=== PATIENT | female | born 1980 | race Two or more races ===

== ENCOUNTER 2025-03-09 19:43 | Emergency (ER) | payer BC ==
[~2025-03-09] VITALS: Ht 162.6 cm; Wt 90.9 kg
[2025-03-09 19:48] VITALS: TEMP 98.6
[2025-03-09 20:07] LABS: BASOPHILS # (AUTO) 0.1 X10'3 (0-0.2); BASOPHILS % (AUTO) 0.9 % (0-1); EOSINOPHILS # (AUTO) 0.1 X10'3 (0-0.9); EOSINOPHILS % (AUTO) 1.8 % (0-6); LYMPHOCYTES # (AUTO) 2.7 X10'3 (1.1-4.8); LYMPHOCYTES % (AUTO) 39.4 % (21-51); MEAN CORPUSCULAR HEMOGLOBIN 25.1 PG (27.0-31.0); MEAN CORPUSCULAR HGB CONC 32.2 g/dL (33.0-36.5); MEAN CORPUSCULAR VOLUME 77.8 FL (78-98); MEAN PLATELET VOLUME 8.9 FL (7.4-10.4); MONOCYTES # (AUTO) 0.6 X10'3 (0-0.9); MONOCYTES % (AUTO) 9.1 % (2-12); NEUTROPHILS # (AUTO) 3.4 X10'3 (1.8-7.7); NEUTROPHILS % (AUTO) 48.8 % (42-75); PLATELET COUNT 349 X10'3 (140-440); RED BLOOD COUNT 4.37 X10'6 (4.20-5.60); RED CELL DISTRIBUTION WIDTH 16.5 % (11.5-14.5); WHITE BLOOD COUNT 6.9 X10'3 (4.5-11.0)
[2025-03-09 20:23] LABS: ALANINE AMINOTRANSFERASE 18 U/L (12-78); ALBUMIN 3.6 G/DL (3.4-5.0); ALBUMIN/GLOBULIN RATIO 0.9 (1.1-1.5); ALKALINE PHOSPHATASE 103 IU/L (46-116); ANION GAP 6 (8-16); ASPARTATE AMINO TRANSFERASE 20 U/L (10-37); BILIRUBIN,TOTAL 0.4 MG/DL (0.1-1.0); BLOOD UREA NITROGEN 8 MG/DL (7-18); BUN/CREATININE RATIO 14.8 (10.0-20.0); CALCIUM 8.2 MG/DL (8.5-10.1); CHLORIDE 108 MMOL/L (99-107); CREATININE 0.54 MG/DL (0.40-0.90); GLUCOSE 134 MG/DL (70-104); LIPASE 107 U/L (16-77); POTASSIUM 3.6 MMOL/L (3.5-5.1); SODIUM 143 MMOL/L (135-145); TOTAL CARBON DIOXIDE 28.6 MMOL/L (24-32); TOTAL PROTEIN 7.5 G/DL (6.4-8.2); eCRCL 116 ML/MIN; eGFR > 90 ML/MIN
[2025-03-09 20:35] LABS: BILIRUBIN,URINE NEGATIVE (Neg); CLARITY,URINE CLEAR (Clear); COLOR,URINE YELLOW (Yellow); GLUCOSE, URINE NEGATIVE (Neg); KETONES,URINE NEGATIVE (Neg); LEUKOCYTE ESTERASE ,URINE NEGATIVE (Neg); NITRITES, URINE NEGATIVE (Neg); OCCULT BLOOD,URINE LARGE (Neg); PH,URINE 6.5 (4.8-8.0); PROTEIN,URINE NEGATIVE (Neg); UROBILINOGEN,URINE 0.2 E.U/dL (0.2-1.0)
[2025-03-09 20:37] LABS: URINE HCG NEGATIVE (NEG)
[2025-03-09 20:41] LABS: UA COLLECTION TYPE CLN CATCH MIDSTREAM
[2025-03-09 20:42] LABS: BACTERIA,URINE FEW /HPF (Neg); RBC,URINE 20-50 /HPF (0-2); SQUAMOUS EPITHELIAL CELL,UR FEW /LPF (FEW); WBC,URINE NONE SEEN /HPF (0-4)
--- NOTE | 2025-03-09 23:33 | Physician Documentation ---
History of Present Illness ~ Chief Complaint: Abdominal Pain Stated Complaint: BLOOD IN URINE/STOOL Time Seen by MD: 23:18 Mode of Arrival: POV HPI Patient presents to the emergency room with abdominal pain x3 days worsening. No prior instances. Patient also endorses some bright red blood mixed with her stools over the past few days. No history of hemorrhoids. No history of ulcers. She denies any black stool. No fevers. She is currently menstruating. Denies nausea or vomiting. She is on Mounjaro for the past year. She does have a primary care provider Medication Reconciliation Allergies: Coded Allergies: No Known Allergies (Unverified , 03/09/25) Review of Systems ROS All review of systems negative except as per HPI Physical Exam Vital Signs: Temperature: 98.6, Heart Rate: 70, Respiratory Rate: 17, BP: 96/71, Pulse Oximetry: 97, Weight: 90.910 Oxygen Flow Rate: 0 Physical Exam General: Patient is awake, alert, oriented x4 in no acute distress and well appearing.~ Head: Normocephalic and atraumatic. Eyes: Conjunctival normal. EOMI. PERRL. ENT: Mucous membranes moist. Neck: Supple, trachea is midline. Chest: Clear to auscultation bilaterally without rales, rhonchi, or wheezes. There is no accessory muscle use or retractions. Cardiac: RRR without murmurs, gallops, or rubs. Abd: Soft, nondistended, nontender, with normoactive bowel sounds. No guarding, rebound, or rigidity. Negative Boone's, negative McBurney's. No adnexal tenderness Progress Results/Orders Results/Orders Completed Orders - JUAN MIGUEL KNAPP MD Hcg, Ur Ql (03/09/25 19:54) Cbc/Diff (03/09/25 19:54) Lipase (03/09/25 19:54) CMP (03/09/25 19:54) Ua W/Microscopic, Cult If Ind (03/09/25 19:54) Vital Signs 03/09/25 03/09/25 03/09/25 03/09/25 19:48 21:23 21:25 22:36 Temp 98.6 Pulse 79 72 70 Resp 16 18 16 17 B/P (MAP) 153/90 148/73 (98) 96/71 (79) Pulse Ox 98 97 97 O2 Flow Rate 0 03/09/25 23:47 Pulse 62 Resp 18 B/P (MAP) 160/91 (114) Pulse Ox 98 Laboratory Tests Test 03/09/25 19:54 03/09/25 20:01 Urine Specimen Description Cln catch midstream Urine Color Yellow Urine Clarity Clear Urine pH 6.5 Urine Specific [place] 1.010 Urine Protein Negative Urine Glucose (UA) Negative Urine Ketones Negative Urine Occult Blood Large H Urine Nitrite Negative Urine Bilirubin Negative Urine Urobilinogen 0.2 Urine Leukocyte Esterase Negative Urine RBC 20-50 Urine WBC None seen Urine Squamous Epithelial Cells Few Urine Bacteria Few Urine Culture Indicated Not ind Volume Urine Centrifuged 10 ml Urine HCG, Qualitative Negative Urine Comment White Blood Count 6.9 Red Blood Count 4.37 Hemoglobin 11.0 L Hematocrit 34.0 L Mean Corpuscular Volume 77.8 L Mean Corpuscular Hemoglobin 25.1 L Mean Corpuscular Hemoglobin Concent 32.2 L Red Cell Distribution Width 16.5 H Platelet Count 349 Mean Platelet Volume 8.9 Neutrophils (%) (Auto) 48.8 Lymphocytes (%) (Auto) 39.4 Monocytes (%) (Auto) 9.1 Eosinophils (%) (Auto) 1.8 Basophils (%) (Auto) 0.9 Neutrophils # (Auto) 3.4 Lymphocytes # (Auto) 2.7 Monocytes # (Auto) 0.6 Eosinophils # (Auto) 0.1 Basophils # (Auto) 0.1 CBC Comment Sodium Level 143 Potassium Level 3.6 Chloride Level 108 H Carbon Dioxide Level 28.6 Anion Gap 6 L Blood Urea Nitrogen 8 Creatinine 0.54 Estimated GFR/1.73 m2 > 90 BUN/Creatinine Ratio 14.8 Glucose Level 134 H Calcium Level 8.2 L Total Bilirubin 0.4 Aspartate Amino Transf (AST/SGOT) 20 Alanine Aminotransferase (ALT/SGPT) 18 Alkaline Phosphatase 103 Total Protein 7.5 Albumin 3.6 Globulin 3.9 Albumin/Globulin Ratio 0.9 L Lipase 107 H Chemistry Comments Medical Decision Making Findings Patient presents to the emergency room with abdominal pain as per HPI. Differentials include but are not limited to gastritis cholecystitis appendicitis diverticulitis therefore emergent labs ordered. Labs reassuring for no elevation of white blood cell count. Patient does have mild anemia however she also has a decreased MCV. No tenderness elicited on abdominal exam. Mild elevation of patient's lipase. No elevation of patient's liver enzymes. After discussing the risks and benefits as well as alternatives of investigation into pancreatitis patient would prefer a more conservative approach. I do not feel patient is suffering from gallstone pancreatitis given no elevation of liver enzymes and no tenderness to palpation to the gallbladder area. She denies drinking any alcohol he had not feel she is suffering from alcoholic pancreatitis. She is on Mounjaro. She is declining IV fluids and would prefer to go home and drank fluids. She is declining pain medication. After discussing the risks and benefits of radiation exposure for CT scan patient is declining and we will treat pancreatitis conservatively. She has been instructed to stop her Mounjaro. She has also been instructed to call her doctor in the morning to arrange for follow up. ER precautions discussed Departure Disposition: 01 HOME / SELF CARE / HOMELESS Impression: Primary Impression: Pancreatitis Condition: Stable Discharge Instructions: Acute Pancreatitis, [id number] Additional Instructions: Look up pancreatitis diet and follow. Drink plenty of fluids. Stop your Mounjaro. Call your doctor in the morning to arrange for follow up. Return for fevers or uncontrolled /worsening of pain. Referrals: NO PRIMARY CARE PROVIDER (PCP) Education Educated: Patient Educated regarding: diagnosis, treatment, need for follow up Signature Scribe Signature: No scribe Attestation: The note accurately reflects work and decisions made by me.Juan Miguel Knapp MD 03/10/25 00:02 JUAN MIGUEL KNAPP MD March 09, 2025 23:33
[2025-03-09 23:47] VITALS: BP 160/91; PULSE 62; RESP 18; O2SAT 98
== END 2025-03-10 00:27 | disposition home or self-care (01) ==
LOC: ER 19:44
DX: K85.90 Acute pancreatitis without necrosis or infection, unspecified (principal)
CPT/HCPCS: 36415; 80053; 81001; 81025; 83690; 85025; 99283